=== PATIENT | male | born 1960 | race Caucasian/White ===

== ENCOUNTER 2020-09-23 14:11 | Emergency (ER) | payer MEDICARE, MEDICAID ==
[2020-09-23 14:29] VITALS: BP 134/89
--- NOTE | 2020-09-23 15:32 | ED Physician Documentation ---
PD HPI NVD - Stated complaint Stated Complaint: DIARRHEA - Chief complaint Chief Complaint: Abd Pain - History obtained from History obtained from: Patient - History of Present Illness Pain level max: 0 Pain level now: 0 Associated symptoms: No: Fever, Abdominal pain, Chest pain, Hematemesis, Melena, Hematochezia Contributing factors: No: Sick contact, Bad food, Travel, Recent antibiotics, Alcohol use, Anticoagulated, Diabetes Improved by: Vomiting Worsened by: Eating Recently seen: Not recently seen - Additonal information Additional information: 59-year-old male presents to the emergency department stating that he had diarrhea x2 yesterday and today. He states that he vomited twice today. He states he currently feels better. No fevers. No chills. No abdominal pain. No recent travel. No recent antibiotics. No blood in the stool or blood in the emesis. Review of Systems Constitutional: denies: Fever, Chills Respiratory: denies: Cough Skin: denies: Rash Musculoskeletal: denies: Neck pain, Back pain Neurologic: denies: Headache PD PAST MEDICAL HISTORY - Past Medical History Past Medical History: No - Past Surgical History Past Surgical History: No - Present Medications Home Medications: Ambulatory Orders Medication Instructions Recorded Confirmed Ondansetron Odt [Zofran] 4 mg TL Q6H PRN #10 tablet 09/23/20 - Living Situation Living Arrangement: reports: At home - Social History Does the pt have substance abuse?: No - Family History Family history: reports: Non contributory PD ED PE NORMAL - Vitals Vital signs reviewed: Yes - General General: Alert and oriented X 3, No acute distress, Well developed/nourished - HEENT HEENT: PERRL, Moist mucous membranes - Neck Neck: Supple, no meningeal sign - Cardiac Cardiac: RRR, Strong equal pulses - Respiratory Respiratory: No respiratory distress, Clear bilaterally - Abdomen Abdomen: Normal bowel sounds, Soft, Non tender, Non distended - Back Back: No CVA TTP - Derm Derm: Warm and dry - Extremities Extremities: No edema - Neuro Neuro: Alert and oriented X 3 - Psych Psych: Normal mood, Normal affect Results - Vitals Vitals: Vital Signs - 24 hr 09/23/20 14:24 Temperature 36.8 C Heart Rate 87 Respiratory 18 Rate Blood Pressure 134/89 H O2 Saturation 95 Oxygen O2 Source Room air PD MEDICAL DECISION MAKING - ED course Complexity details: considered differential, d/w patient ED course: Patient is currently asymptomatic. History is consistent with gastroenteritis. Tolerating p.o. without difficulty here. No abdominal pain. No evidence of diverticulitis, bowel obstruction, sepsis. No indication for laboratory testing at this time. He is well-hydrated. Well-appearing, nontoxic. No blood in the vomit or stool. Patient counseled regarding signs and symptoms for which I believe and urgent re-evaluation would be necessary. Patient with good understanding of and agreement to plan and is comfortable going home at this time This document was made in part using voice recognition software. While efforts are made to proofread this document, sound alike and grammatical errors may occur. Departure - Departure Disposition: 01 Home, Self Care Clinical Impression: Viral gastroenteritis Condition: Good Instructions: ED Gastroenteritis Viral Follow-Up: your,doctor in 3-5 days for recheck [Other] Prescriptions: Ondansetron Odt [Zofran] 4 mg TL Q6H PRN #10 tablet PRN Reason: Nausea / Vomiting Comments: Follow-up with your doctor for further care. Drink plenty of fluids and rest. You can use the Zofran if you have nausea again. Return if you worsen
== END 2020-09-23 15:36 | disposition home or self-care (01) ==
LOC: ED 14:11
DX: A08.4 Viral intestinal infection, unspecified (principal)
CPT/HCPCS: 80053; 83690; 85025; 99283; 99284

== ENCOUNTER 2021-09-16 12:41 | Outpatient (CLI) | payer MEDICARE, MEDICAID ==
[2021-09-16 15:02] LABS: BASOPHILS % (AUTO) 0.2 %; EOSINOPHILS % (AUTO) 0.2 %; HCT - HEMATOCRIT 49.9 % (42.0-52.0); HGB - HEMOGLOBIN 16.9 g/dL (14.0-18.0); LYMPHOCYTES # (AUTO) 1.3 10^3/uL (1.5-3.5); LYMPHOCYTES % (AUTO) 10.3 %; MEAN CORPUSCULAR HEMOGLOBIN 30.1 pg (27.0-31.0); MEAN CORPUSCULAR HGB CONC 33.9 g/dL (32.0-36.0); MEAN CORPUSCULAR VOLUME 88.8 fL (80.0-94.0); MEAN PLATELET VOLUME 10.3 fL (7.4-11.4); MONOCYTES % (AUTO) 7.5 %; NEUTROPHILS # (AUTO) 10.3 10^3/uL (1.5-6.6); NEUTROPHILS % (AUTO) 81.5 %; PLT - PLATELET COUNT 288 10^3/uL (130-450); RED BLOOD COUNT 5.62 10^6/uL (4.70-6.10); RED CELL DISTRIBUTION WIDTH 13.2 % (12.0-15.0); WHITE BLOOD COUNT 12.6 x10^3/uL (4.8-10.8)
[2021-09-16 15:23] LABS: ALBUMIN 4.6 g/dL (3.2-5.5); ALBUMIN/GLOBULIN RATIO 1.4 (1.0-2.2); BILIRUBIN,TOTAL 1.5 mg/dL (0.2-1.0); CREATININE 0.9 mg/dL (0.6-1.2); POTASSIUM 4.2 mmol/L (3.5-5.0); TOTAL PROTEIN 7.8 g/dL (6.7-8.2)
== END 2021-09-16 23:59 | disposition home or self-care (01) ==
LOC: LAB.S 12:41
PROVIDERS: ATTEND Emergency Medicine
DX: K92.0 Hematemesis (principal)
CPT/HCPCS: 36415; 80053; 83690; 85025; 85610

== ENCOUNTER 2021-09-17 12:08 | Emergency (ER) | payer MEDICARE, MEDICAID ==
[2021-09-17 13:23] LABS: BASOPHILS % (AUTO) 0.2 %; EOSINOPHILS % (AUTO) 0.1 %; HCT - HEMATOCRIT 47.6 % (42.0-52.0); HGB - HEMOGLOBIN 16.2 g/dL (14.0-18.0); LYMPHOCYTES # (AUTO) 1.2 10^3/uL (1.5-3.5); LYMPHOCYTES % (AUTO) 6.9 %; MEAN CORPUSCULAR VOLUME 88.1 fL (80.0-94.0); MEAN PLATELET VOLUME 9.9 fL (7.4-11.4); MONOCYTES # (AUTO) 1.3 10^3/uL (0.0-1.0); MONOCYTES % (AUTO) 7.8 %; NEUTROPHILS # (AUTO) 14.3 10^3/uL (1.5-6.6); NEUTROPHILS % (AUTO) 84.5 %; PLT - PLATELET COUNT 265 10^3/uL (130-450); RED CELL DISTRIBUTION WIDTH 13.2 % (12.0-15.0); WHITE BLOOD COUNT 16.9 x10^3/uL (4.8-10.8)
[2021-09-17 13:36] LABS: ALBUMIN 4.7 g/dL (3.2-5.5); ALBUMIN/GLOBULIN RATIO 1.4 (1.0-2.2); BILIRUBIN,TOTAL 1.8 mg/dL (0.2-1.0); CALCIUM 9.1 mg/dL (8.5-10.3); CREATININE 1.1 mg/dL (0.6-1.2); POTASSIUM 4.1 mmol/L (3.5-5.0)
[2021-09-17 13:42] LABS: INR 1.2 (0.8-1.2); PT - PROTHROMBIN TIME 13.1 secs (9.9-12.6)
[2021-09-17 13:50] LABS: PARTIAL THROMBOPLASTIN TIME 27.4 secs (24.9-33.3)
--- NOTE | 2021-09-17 14:29 | ED Physician Documentation ---
PD HPI NVD - Stated complaint Stated Complaint: SORE THROAT, VOMITING - Chief complaint Chief Complaint: General - History obtained from History obtained from: Patient, Caregiver - History of Present Illness Timing - onset: How many days ago (few) Timing - duration: Days (few) Timing - details: Still present, Intermittant (has had the symptoms mainly in the mornings, with nausea and vomiting of dark material. Has some nausea and less appetite during the day but no vomiting. Denies soft stool nor melena colored stools.) Associated symptoms: Abdominal pain (intermittent epigastric), Loss of appetite (for few days). No: Fever, Dizzy, Near syncope / syncope Contributing factors: No: Sick contact, Bad food, Recent antibiotics, Alcohol use Improved by: Vomiting (he feels less nauseated after vomiting in the past few mornings. Feels some lower chest discomfort with lying flat and prior to vomiting.) Worsened by: Eating Similar symptoms before: Has not had sx before Recently seen: Clinic (went to walk in clinic yesterday and had labs drawn, and told to use OTC Omeprazole. Caregiver says same symptoms this morning.) Review of Systems Constitutional: denies: Fever, Chills Nose: denies: Rhinorrhea / runny nose, Congestion Throat: denies: Sore throat Respiratory: denies: Cough GI: reports: Abdominal Pain, Nausea, Vomiting, Hematemesis (dark black colored without dark food ingestions. No red blood in emesis. Small amount only noted when vomits.). denies: Diarrhea, Bloody / black stool Musculoskeletal: denies: Neck pain, Back pain Neurologic: denies: Generalized weakness, Near syncope PD PAST MEDICAL HISTORY - Past Medical History Cardiovascular: None Respiratory: None Neuro: None Endocrine/Autoimmune: None GI: None : None HEENT: None Psych: None Musculoskeletal: None Derm: None - Past Surgical History Past Surgical History: No - Present Medications Home Medications: Ambulatory Orders Medication Instructions Recorded Confirmed Ondansetron Odt [Zofran] 4 mg TL Q6H PRN #10 tablet 09/23/20 Ondansetron Odt [Zofran] 4 mg TL Q6H PRN #20 tablet 09/17/21 Sucralfate [Carafate] 1 gm PO ACHS #28 tablet 09/17/21 - Allergies Allergies/Adverse Reactions: Allergies Allergy/AdvReac Type Severity Reaction Status Date / Time No Known Drug Allergies Allergy Verified 09/17/21 12:27 - Social History Does the pt smoke?: No Smoking Status: Never smoker Does the pt have substance abuse?: No PD ED PE NORMAL - Vitals Vital signs reviewed: Yes - General General: Alert and oriented X 3, No acute distress, Well developed/nourished - HEENT HEENT: Moist mucous membranes, Pharynx benign - Neck Neck: Supple, no meningeal sign, No adenopathy - Cardiac Cardiac: RRR, No murmur - Respiratory Respiratory: Clear bilaterally - Abdomen Abdomen: Normal bowel sounds, Soft, Non tender, Non distended, No organomegaly - Male Male : Deferred - Rectal Rectal: Deferred - Back Back: No CVA TTP - Derm Derm: Normal color, Warm and dry - Extremities Extremities: No tenderness to palpate, No edema, No calf tenderness / cord - Neuro Neuro: Alert and oriented X 3, No motor deficit, Normal speech Results - Vitals Vitals: Vital Signs - 24 hr 09/17/21 09/17/21 12:22 15:45 Temperature 36.5 C Heart Rate 74 101 H Respiratory 16 18 Rate Blood Pressure 127/84 H 115/73 O2 Saturation 98 96 Oxygen O2 Source Room air - Labs Labs: Laboratory Tests 09/17/21 09/17/21 09/17/21 13:17 13:17 13:17 WBC 16.9 H RBC 5.40 Hgb 16.2 Hct 47.6 MCV 88.1 MCH 30.0 MCHC 34.0 RDW 13.2 Plt Count 265 MPV 9.9 Neut # (Auto) 14.3 H Lymph # (Auto) 1.2 L [place] # (Auto) 1.3 H Eos # (Auto) 0.0 Baso # (Auto) 0.0 Absolute Nucleated RBC 0.00 Nucleated RBC % 0.0 PT 13.1 H INR 1.2 APTT 27.4 Sodium 133 L Potassium 4.1 Chloride 94 L Carbon Dioxide 26 Anion Gap 13.0 BUN 28 H Creatinine 1.1 Estimated GFR (MDRD) 68 L Glucose 122 H Calcium 9.1 Total Bilirubin 1.8 H AST 21 ALT 21 Alkaline Phosphatase 57 Total Protein 8.0 Albumin 4.7 Globulin 3.3 Albumin/Globulin Ratio 1.4 Lipase 30 PD MEDICAL DECISION MAKING - ED course Complexity details: reviewed results (slight decrease in Hgb from yesterday but still very good blood count. Normal ER panel. ), considered differential, d/w patient Departure - Departure Disposition: 01 Home, Self Care Clinical Impression: Nausea and vomiting Qualifiers: Vomiting type: hematemesis Qualified Code(s): K92.0 - Hematemesis Condition: Stable Record reviewed to determine appropriate education?: Yes Instructions: ED PUD Vs Gastritis Prescriptions: Sucralfate [Carafate] 1 gm PO ACHS #28 tablet Ondansetron Odt [Zofran] 4 mg TL Q6H PRN #20 tablet PRN Reason: Nausea / Vomiting Comments: Your blood count is essentially the same as yesterday with minimal change. This suggests no significant amount of stomach bleeding at this time. Continue the Prilosec as previsouly directed. Add Sucralfate suspension around meals and before bed as directed for the next week. Ondansetron for nausea as needed but particularly before bed at night to reduce morning nausea/vomiting. Sleep with head elevated some as you did last night. Follow up with the Walk In clinic as intended in the next week or two. Return if worse symptoms overall. Discharge Date/Time: 09/17/21 15:46
[2021-09-17] MEDS ORDERED: SUCRALFATE 1 GM/10 ML UDC PO STA (15:11)
[2021-09-17] MEDS ORDERED: ONDANSETRON ODT 4 MG TABLET TL STA (15:11)
[2021-09-17] MEDS ORDERED: LIDOCAINE VISCOUS 2% 15 ML UDC MM STA (15:11)
[2021-09-17 15:46] VITALS: BP 115/73
== END 2021-09-17 15:46 | disposition home or self-care (01) ==
LOC: ED 12:08
DX: K92.0 Hematemesis (principal)
CPT/HCPCS: 36415; 80053; 83690; 85025; 85610; 85730; 99283; A9270; Q0162

== ENCOUNTER 2021-12-09 14:25 | Outpatient (CLI) | payer MEDICARE, MEDICAID ==
[2021-12-09 20:01] LABS: ALBUMIN 4.4 g/dL (3.2-5.5); ALBUMIN/GLOBULIN RATIO 1.6 (1.0-2.2); BILIRUBIN,TOTAL 0.6 mg/dL (0.2-1.0); CREATININE 0.9 mg/dL (0.6-1.2); POTASSIUM 3.8 mmol/L (3.5-5.0); TOTAL PROTEIN 7.2 g/dL (6.7-8.2)
== END 2021-12-09 14:26 | disposition home or self-care (01) ==
LOC: LAB.S 14:25
PROVIDERS: ATTEND Internal Medicine
DX: R17 Unspecified jaundice (principal)
CPT/HCPCS: 36415; 80053

== ENCOUNTER 2022-10-08 07:00 | Outpatient (CLI) | payer MEDICARE, MEDICAID ==
--- NOTE | 2022-10-09 10:21 | XRAY Report ---
PROCEDURE: Ankle 3 View LT INDICATIONS: SPRAIN OF LEFT ANKLE TECHNIQUE: 3 views of the ankle were acquired. COMPARISON: None FINDINGS: Bones: Possible acute minimally displaced fibular tip fracture below the level of the tibial plafond. Ankle mortise is normally aligned. No suspicious bony lesions. Soft tissues: Lateral malleolar soft tissue swelling present. IMPRESSION: Possible acute minimally displaced lateral malleolus fracture. If symptoms persist, follow-up radiogr aphs and/or CT or MRI may be helpful for further evaluation. Reviewed by: Erickson Beck MD on 10/09/2022 10:20 AM [facility] Approved by: Erickson Beck MD on 10/09/2022 10:20 AM [facility] Station ID: [id number]
== END 2022-10-08 07:01 | disposition home or self-care (01) ==
LOC: DI.S 07:00
PROVIDERS: ATTEND Emergency Medicine
DX: S93.492A Sprain of other ligament of left ankle, initial encounter (principal)